=== PATIENT | female | born 1990 | race Caucasian/White ===

== ENCOUNTER 2016-05-20 12:30 | Emergency (ER) | payer BC ==
[~2016-05-20] VITALS: Ht 160 cm; Wt 64.4 kg
[2016-05-20 12:56] VITALS: BP 116/60; PULSE 100; RESP 18; TEMP 98.3; O2SAT 94
--- NOTE | 2016-05-20 14:45 | NUR ---
RECEIVED PT IN [facility]IR, WILL ASSUME CARE
--- NOTE | 2016-05-20 15:09 | NUR ---
KYLEE Dorado examining patient at this time.
[2016-05-20] MEDS ORDERED: IBUPROFEN 800 MG TABLET PO ONE (15:30)
[2016-05-20 16:10] VITALS: BP 114/67; PULSE 87; RESP 19; TEMP 97.2; O2SAT 97
--- NOTE | 2016-05-20 16:12 | NUR ---
Patient given written and verbal discharge instructions and verbalizes understanding. ER MD discussed with patient the results and treatment provided. Given copies of tests performed in ER. Patient in stable condition. ID arm band removed. Rx of NAPROXEN given. Patient educated on pain management and to follow up with PMD. Pain Scale 0/10. Opportunity for questions provided and answered.
== END 2016-05-20 16:10 | disposition home or self-care (01) ==
LOC: SED 12:30
DX: G57.62 Lesion of plantar nerve, left lower limb (principal); R20.0 Anesthesia of skin
CPT/HCPCS: 81025; 99284